=== PATIENT | male | born 1985 | race Hispanic/Latino ===

== ENCOUNTER 2020-06-23 13:02 | Inpatient (IN) | payer SELFPAY ==
--- OUTSIDE RECORDS SUMMARY | 2020-06-23 13:05 | XMS REPORT | Continuity of Care Document ---
:1985 Author Organization [facility] t Address [address] [place] [address] Care Team Providers Name Role Phone Flor Attending Clinician Problems Condition Condition Condition Status Onset Resolution Last Treating Co mments Source Name Details Category Date Date Treatment Clinician Date SORE Diagnosis Active 2018-07-20 Mem oria THROAT 11-27 16:43:00 l SORE 00:00: Mario THROAT 00 Active 11/27/2017 [facility] Tobacco Problem 2018-06-17 Carlos zeyad use 14:29:03 l Tobacco Mario use 06/17/2018 [facility] History of Past Illness Condition Condition Condition Status Onset Resolution Last Treating Co mments Source Name Details Category Date Date Treatment Clinician Date Acute Problem 2018-06-17 2018-06-17 M emoria pharyngiti 11-28 14:29:03 14:29:03 l s, Acute 05:00: Mario unspecifie pharyngiti 00 d s, unspecifie d 11/28/2017 06/17/2018 [facility] Allergies, Adverse Reactions, Alerts This patient has no known allergies or adverse reactions. Social History Social Habit Start Date Stop Date Quantity Comments Source Social History 2017-11-28 2017-11-28 [facility] ermann 08:19:00 08:19:00 Medications Ordered Filled Start Stop Current Ordering Indication Dosage Frequency Signature Comments Components Source Medication Medication Date Date Medication? Clinician (SIG) Name Name Motrin No Notes: Memoria 8-20 (Same as: l 08:02: Motrin) Mario 00 "Do Not Crush" Take with food. phenol 14 Yes 5 spray, Carlos zeyad MG/ML 8-20 PO, Q2H, l Mucosal 07:57: PRN as [facility] 00 needed for sore throat, leave in place x 15 sec,then spit, # 180 mL, 0 Refill(s) amoxicillin No 500 mg = 1 Memoria 500 mg oral 8-20 tab, PO, l tablet 07:55: BID, X 10 Eduardo n 00 day, # 20 tab, 0 Refill(s) Ibuprofen No 800 mg = 1 Me moria 800 MG Oral 8-20 tab, PO, l Tablet 07:54: Q8H, PRN Mario [Motrin] 00 Pain, Take with food, X 3 day, # 9 tab, 0 Refill(s) Vital Signs Vital Name Observation Time Observation Value Comments Source Temperature Oral (F) 2017-11-28 08:17:00 98.5 F [facility] Respitory Rate 2017-11-28 08:17:00 [facility] Heart Rate 2017-11-28 08:17:00 [facility] Systolic (mm Hg) 2017-11-28 08:17:00 Carlos [facility] Diastolic (mm Hg) 2017-11-28 08:17:00 Mem [facility] Heart Rate 2017-11-28 06:56:00 [facility] Systolic (mm Hg) 2017-11-28 06:56:00 Carlos rial Mario Diastolic (mm Hg) 2017-11-28 06:56:00 Mem orial Mario Respitory Rate 2017-11-28 06:56:00 [facility] Weight 2017-11-28 06:56:00 [facility] Temperature Oral (F) 2017-11-28 06:56:00 98.3 F [facility] Procedures This patient has no known procedures. Encounters Start End Encounter Admission Attending Care Care Encounter Source Date/Time Date/Time Type Type Clinicians Facility Department ID 2017-11-28 2017-11-28 Outpatient Flor, [facility] MH[facility] [id number] 01:52:00 03:19:00 [facility] 00 2017-11-28 2017-11-28 Emergency E [facility]BL [facility]BL [id number] [facility]BL 01:52:00 01:52:00 Results Test Description Test Time Test Comments Results Result Comments Source RPR Qualitative 2018-10-26 10:13:39 Test Item Value Reference Range Interpretation Comme nts RPR Qual (test code = RPR Qual) Non-Reactive Non-Reactive Reactive Control (test code = Reactive Control) Reactive Weak Reactive Control (test code = Weak Reactive Weak Reactive Control) Non-Reactive Control (test code = Non-Reactive Non-Reactive Control) Lot # (test code = Lot #) [id number] Expiration Dt (test code = Expiration Dt) 02-09-20 N Lipid [id number] 04:18:41 Test Item Value Reference Range Interpretation Comments Cholesterol Total 188 mg/dL 0-200 RISK OF HE ART (test code = DISEASEPublishe d by Cholesterol Total) [place] [employer] Lisa lyte Optimal Borderl ine Increased RiskC HOL <200 200-239 >2 40TRIG <150 150-199 >2 00HDL Male >60 <40H DL Female >60 <5 0LDL <100 130-159 >1 60LDL Near optimal is 100-129 Triglycerides (test 184 mg/dL 9-200 code = Triglycerides) HDL (test code = HDL) 30 mg/dL 40-60 L LDL (test code = LDL) 122 mg/dL 0-130 The eq uation being used in this calcula tion is LDL = (Chol - H DL) - (Trig / 5) VLDL (test code = 37 mg/dL 5-40 The equati on being used VLDL) in this calcula tion is VLDL = Trig / 5 Chol/HDL (test code = 6.3 ratio 0.0-5.0 H Chol/HDL) LDL/HDL Ratio (test 4 N The equa tion being used code = LDL/HDL Ratio) in thi s calculation is LDL/HDL Ratio=L DL Calc/HDL Chol Thyroid Stimulating [id number] 04:18:41 Test Item Value Reference Range Interpretation Comments TSH (test code = TSH) 1.310 mIU/mL 0.270-4.200 Alcohol [id number] 23:21:50 Test Item Value Reference Range Interpretation Comments Ethanol Level (test <0.00 g/dL 0.00-0.01 Intoxica tu 0.080 g/dL code = Ethanol or more Level) Ethanol Inst (test <0 N code = Ethanol Inst) Comprehensive Metabolic [id number] 23:21:49 Test Item Value Reference Range Interpretation Comments Sodium Level (test 145.0 mmol/L 135.0-145.0 code = Sodium Level) Potassium Level 4.5 mmol/L 3.5-5.1 (test code = Potassium Level) Chloride Level (test 105 mmol/L 98-105 code = Chloride Level) CO2 (test code = 29 mmol/L 22-29 CO2) Anion Gap (test code 11 mmol/L 7-16 = Anion Gap) BUN (test code = 9.90 mg/dL 6.00-20.00 BUN) Creatinine Level 0.90 mg/dL 0.70-1.20 (test code = Creatinine Level) BUN/Creat Ratio 11 N (test code = BUN/Creat Ratio) Glucose Level (test 123 mg/dL 70-115 H code = Glucose Level) Calcium Level (test 9.7 mg/dL 8.3-10.5 code = Calcium Level) Alk Phos (test code 97 U/L 40-129 = Alk Phos) Bilirubin Total 0.4 mg/dL 0.1-0.9 (test code = Bilirubin Total) Albumin Level (test 4.7 g/dL 3.5-5.2 code = Albumin Level) Protein Total (test 6.9 g/dL 6.4-8.3 code = Protein Total) ALT (test code = 48 U/L 1-41 H ALT) AST (test code = 24 U/L 1-40 AST) Globulin (test code 2.2 g/dL 2.9-3.1 L = Globulin) A/G Ratio (test code 2.1 ratio N = A/G Ratio) eGFR AA (test code = >60 N eGFR (e stimated eGFR AA) mL/min/1.73 m2 Glomerular Filtration Rate ) is an estimated va lue, calculated from the patient's serum creatinine usin g the MDRD equation. It is NOT the patient 's actual GFR. The eGFR provides a more clinically usef ul measure of kidn ey disease than se rum creatinine alone.This calculation zan es sex and race in to account, if the information is provided. If th e race is not provided, and t he patient is -Dee n, multiply by 1.2 12. If sex is not provided, and t he patient is fema le, multiply by 0.7 42. Results for pat ients <18 years of ag e have not been validated by th e MDRD study and should be interpreted wit h caution. eGFR R esult Interpretation: eGFR > or = 60 is in the Normal RangeeGF R < 60 may mean kid kavon diseaseeGFR < 1 5 may mean kidney failure Rang es recommended by the National Kidney Foundation, http://nkdep.ni h.gov Comprehensive Metabolic [id number] 23:21:49 Test Item Value Reference Range Interpretation Comments Sodium Level (test 145.0 mmol/L 135.0-145.0 code = Sodium Level) Potassium Level 4.5 mmol/L 3.5-5.1 (test code = Potassium Level) Chloride Level (test 105 mmol/L 98-105 code = Chloride Level) CO2 (test code = 29 mmol/L 22-29 CO2) Anion Gap (test code 11 mmol/L 7-16 = Anion Gap) BUN (test code = 9.90 mg/dL 6.00-20.00 BUN) Creatinine Level 0.90 mg/dL 0.70-1.20 (test code = Creatinine Level) BUN/Creat Ratio 11 N (test code = BUN/Creat Ratio) Glucose Level (test 123 mg/dL 70-115 H code = Glucose Level) Calcium Level (test 9.7 mg/dL 8.3-10.5 code = Calcium Level) Alk Phos (test code 97 U/L 40-129 = Alk Phos) Bilirubin Total 0.4 mg/dL 0.1-0.9 (test code = Bilirubin Total) Albumin Level (test 4.7 g/dL 3.5-5.2 code = Albumin Level) Protein Total (test 6.9 g/dL 6.4-8.3 code = Protein Total) ALT (test code = 48 U/L 1-41 H ALT) AST (test code = 24 U/L 1-40 AST) Globulin (test code 2.2 g/dL 2.9-3.1 L = Globulin) A/G Ratio (test code 2.1 ratio N = A/G Ratio) eGFR AA (test code = >60 N eGFR (e stimated eGFR AA) mL/min/1.73 m2 Glomerular Filtration Rate ) is an estimated va lue, calculated from the patient's serum creatinine usin g the MDRD equation. It is NOT the patient 's actual GFR. The eGFR provides a more clinically usef ul measure of kidn ey disease than se rum creatinine alone.This calculation zan es sex and race in to account, if the information is provided. If th e race is not provided, and t he patient is -Dee n, multiply by 1.2 12. If sex is not provided, and t he patient is fema le, multiply by 0.7 42. Results for pat ients <18 years of ag e have not been validated by th e MDRD study and should be interpreted wit h caution. eGFR R esult Interpretation: eGFR > or = 60 is in the Normal RangeeGF R < 60 may mean kid kavon diseaseeGFR < 1 5 may mean kidney failure Rang es recommended by the National Kidney Foundation, http://nkdep.ni h.gov Comprehensive Metabolic [id number] 23:21:49 Test Item Value Reference Range Interpretation Comments Sodium Level (test 145.0 mmol/L 135.0-145.0 code = Sodium Level) Potassium Level 4.5 mmol/L 3.5-5.1 (test code = Potassium Level) Chloride Level (test 105 mmol/L 98-105 code = Chloride Level) CO2 (test code = 29 mmol/L 22-29 CO2) Anion Gap (test code 11 mmol/L 7-16 = Anion Gap) BUN (test code = 9.90 mg/dL 6.00-20.00 BUN) Creatinine Level 0.90 mg/dL 0.70-1.20 (test code = Creatinine Level) BUN/Creat Ratio 11 N (test code = BUN/Creat Ratio) Glucose Level (test 123 mg/dL 70-115 H code = Glucose Level) Calcium Level (test 9.7 mg/dL 8.3-10.5 code = Calcium Level) Alk Phos (test code 97 U/L 40-129 = Alk Phos) Bilirubin Total 0.4 mg/dL 0.1-0.9 (test code = Bilirubin Total) Albumin Level (test 4.7 g/dL 3.5-5.2 code = Albumin Level) Protein Total (test 6.9 g/dL 6.4-8.3 code = Protein Total) ALT (test code = 48 U/L 1-41 H ALT) AST (test code = 24 U/L 1-40 AST) Globulin (test code 2.2 g/dL 2.9-3.1 L = Globulin) A/G Ratio (test code 2.1 ratio N = A/G Ratio) eGFR AA (test code = >60 N eGFR (e stimated eGFR AA) mL/min/1.73 m2 Glomerular Filtration Rate ) is an estimated va lue, calculated from the patient's serum creatinine usin g the MDRD equation. It is NOT the patient 's actual GFR. The eGFR provides a more clinically usef ul measure of kidn ey disease than se rum creatinine alone.This calculation zan es sex and race in to account, if the information is provided. If th e race is not provided, and t he patient is -Dee n, multiply by 1.2 12. If sex is not provided, and t he patient is fema le, multiply by 0.7 42. Results for pat ients <18 years of ag e have not been validated by [facility] MDRD study and should be interpreted wit h caution. eGFR R esult Interpretation: eGFR > or = 60 is in the Normal RangeeGF R < 60 may mean kid kavon diseaseeGFR < 1 5 may mean kidney failure Rang es recommended by the National Kidney Foundation, http://nkdep.ni h.gov eGFR Non-AA (test >60.00 N eGFR (catia mated code = eGFR Non-AA) mL/min/1.73 m2 Glomer ular Filtration Rate ) is an estimated va lue, calculated from the patient's serum creatinine usin g the MDRD equation. It is NOT the patient 's actual GFR. The eGFR provides a more clinically usef ul measure of kidn ey disease than se rum creatinine alone.This calculation zan es sex and race in to account, if the information is provided. If th e race is not provided, and t he patient is -Dee n, multiply by 1.2 12. If sex is not provided, and t he patient is fema le, multiply by 0.7 42. Results for pat ients <18 years of ag e have not been validated by [facility] MDRD study and should be interpreted wit h caution. eGFR R esult Interpretation: eGFR > or = 60 is in the Normal RangeeGF R < 60 may mean kid kavon diseaseeGFR < 1 5 may mean kidney failure Rang es recommended by the National Kidney Foundation, http://nkdep.ni h.gov Drugs of Abuse Urine [id number] 23:19:05 Test Item Value Reference Range Interpretation Comments Amphetamine Screen Ur Negative Negative For di agnostic (test code = Amphetamine pur poses only. Screen Ur) Positive result s should always b e assessed in conjunction wit h a patient's medic al history. Barbiturate Screen Ur Negative Negative (test code = Barbiturate Screen Ur) Benzodiazepines Ur (test Negative Negative code = Benzodiazepines Ur) Cocaine Screen Ur (test Negative Negative code = Cocaine Screen Ur) U Methadone (test code = Negative Negative U Methadone) Opiate Screen Ur (test Negative Negative code = Opiate Screen Ur) U PCP Scrn (test code = U Negative Negative PCP Scrn) U Propoxyphene (test code Negative Negative = U Propoxyphene) Cannabinoid Screen Ur Negative Negative (test code = Cannabinoid Screen Ur) Complete Blood Count with [id number] 23:09:01 Test Item Value Reference Range Interpretation Comments WBC (test code = WBC) 10.8 x10 4.4-10.5 H RBC (test code = RBC) 4.77 x10 4.10-5.70 Hgb (test code = Hgb) 14.9 g/dL 13.4-17.4 Hct (test code = Hct) 43.2 % 38.7-52.0 MCV (test code = MCV) 90.60 fL 80.00-100.00 MCHC (test code = 34.50 g/dL 32.00-37.50 MCHC) RDW CV (test code = 11.9 % 11.5-14.5 RDW CV) MCH (test code = MCH) 31.2 pg 27.0-32.5 Platelets (test code = 419.0 x10 140.0-440.0 Platelets) MPV (test code = MPV) 9.9 fL N Slide Review (test Auto Auto Result cr eated by code = Slide Review) GL_SJM_ SLIDE_REV_AUTO nRBC (test code = 0 N nRBC) NRBC Abs (test code = 0.00 x10 N NRBC Abs) IPF (test code = IPF) 0 % N Automated [id number] 23:09:01 Test Item Value Reference Range Interpretation Comments Neutro Auto (test code = Neutro 59.1 % 36.0-70.0 Auto) Lymph Auto (test code = Lymph Auto) 33.5 % 12.0-44.0 Hickory Auto (test code = Hickory Auto) 5.9 % 0.0-11.0 Eos, Auto (test code = Eos, Auto) 0.6 % 0.0-7.0 Basophil Auto (test code = Basophil 0.6 % 0.0-2.0 Auto) Neutro Absolute (test code = Neutro 6.4 x10 1.6-7.4 Absolute) Lymph Absolute (test code = Lymph 3.61 x10 .50-4.60 Absolute) [place]ory Absolute (test code = [place]ickory .64 x10 .00-1.20 Absolute) Eos Absolute (test code = Eos 0.07 x10 0.00-0.74 Absolute) Baso Absolute (test code = Baso 0.06 x10 0.00-0.21 Absolute) IG [id number] 23:09:01 Test Item Value Reference Range Interpretation Comments IG (test code = IG) 0.3 % 0.0-5.0 IG Abs (test code = IG Abs) 0 x10 N [id number] 07:00:00Negative (11/28/17 2:00 AM)[facility]
--- NOTE | 2020-06-23 15:46 | RAD REPORT ---
EXAM DESCRIPTION: CT - Stone Protocol - 06/23/2020 2:37 pm CLINICAL HISTORY: Abdominal pain. COMPARISON: None. TECHNIQUE: Computed axial tomography of the abdomen pelvis was obtained without oral or IV contrast. Lack of IV and oral contrast limits evaluation of solid organs, bowel, and vessels. Coronal reformat tu images were obtained and reviewed. All CT scans are performed using dose optimization technique as appropriate and may include automated exposure control or mA/KV adjustment according to patient size. FINDINGS: A renal calculus is not seen. An ureteral calculus is not noted. A bladder calculus is not present. The liver, spleen, pancreas and adrenals appear grossly normal There is no evidence of diverticulitis. The appendix extends inferiorly from the cecum. The mid and distal portion are dilated with minimal a djacent stranding. Small left inguinal hernia IMPRESSION: Mid and distal appendix are dilated probably indicating appendicitis
[2020-06-23 16:12] LABS: Absolute Lymphocytes (CBC) 3.1 K/uL (0.7-4.9); Basophils % 0.7 % (0-1.3); Hematocrit 43.7 % (39.6-49.0); Lymphocytes % 27.8 % (15.3-44.8); MPV 8.3 fL (7.6-11.3); RBC Red Blood Cell Count 4.81 M/uL (4.33-5.43)
[2020-06-23 16:28] LABS: ALT/SGPT 30 U/L (12-78); AST/SGOT 13 U/L (15-37); Albumin 4.1 g/dL (3.4-5.0); Alkaline Phosphatase 88 U/L (45-117); BUN Blood Urea Nitrogen 9 mg/dL (7-18); Bicarbonate 30 mmol/L (21-32); Bilirubin Direct 0.1 mg/dL (0-0.2); Bilirubin Total 0.5 mg/dL (0.2-1.0); Glucose Level 89 mg/dL (74-106); Lipase 193 U/L (73-393); Potassium 3.9 mmol/L (3.5-5.1); Protein, Total 7.8 g/dL (6.4-8.2); Sodium Level 141 mmol/L (136-145)
[2020-06-23] MEDS ORDERED: PIPER/TAZO/NS 3.375gm 3.375 GM/100 ML BAG ONE (16:31)
[2020-06-23] MEDS ORDERED: NA CHLORIDE 0.9% 1,000 ML ONE (16:31)
[2020-06-23] MEDS ORDERED: MORPHINE 4 MG/ML SYR ONE (16:31)
[2020-06-23] MEDS ORDERED: ONDANSETRON 4 MG/2 ML VIAL ONE (16:31)
--- NOTE | 2020-06-23 16:57 | EDPHYS ---
Physician Documentation [facility] Name: Matthew Beltrán Age: 35 yrs Sex: Male : 1985 Arrival Date: 06/23/2020 Time: 13:06 Bed 2 Private MD: ED Physician Karthik Ordoñez HPI: 06/23 14:41 This 35 yrs old Male presents to ER via Ambulatory with complaints of Possible jmm Kidney Stone. 14:41 The patient complains of pain in the right flank. Onset: The symptoms/episode jmm began/occurred acutely, this morning. Modifying factors: The symptoms are alleviated by nothing. the symptoms are aggravated by nothing. Associated signs and symptoms: Pertinent positives: hematuria. 14:42 This is a 35 year old male with a history of anxiety that presents to the ED with jmm complaints of right flank pain beginning this morning with an episode of hematuria. Denies vomiting. . Historical: - Allergies: 14:18 No Known Allergies; ca1 - Home Meds: 14:18 Celexa Oral [Active]; ca1 - PMHx: 14:18 Anxiety; ca1 - PSHx: 14:18 None; ca1 - Immunization history:: Flu vaccine is not up to date. - Social history:: Smoking status: Patient denies any tobacco usage or history of. ROS: 14:42 Constitutional: Negative for fever, chills, and weight loss, Cardiovascular: Negative jmm for chest pain, palpitations, and edema, Respiratory: Negative for shortness of breath, cough, wheezing, and pleuritic chest pain. 14:42 Abdomen/GI: Positive for abdominal pain. 14:42 Back: Positive for flank pain. 14:42 All other systems are negative. Exam: 14:42 Head/Face: atraumatic. Eyes: EOMI, no conjunctival erythema appreciated ENT: Moist jmm Mucus Membranes Neck: Trachea midline, Supple Chest/axilla: Normal chest wall appearance and motion. Cardiovascular: Regular rate and rhythm. No edema appreciated Respiratory: Normal respirations, no respiratory distress appreciated Abdomen/GI: Non distended, soft Back: Normal ROM Skin: General appearance color normal MS/ Extremity: Moves all extremities, no obvious deformities appreciated, no edema noted to the lower extremities Neuro: Awake and alert, normal gait Psych: Behavior is normal, Mood is normal, Patient is cooperative and pleasant 14:42 Constitutional: The patient appears alert, awake, uncomfortable. 16:15 Abdomen/GI: Inspection: abdomen appears normal, Bowel sounds: normal, Palpation: soft, [facility] mild abdominal tenderness, in the right lower quadrant. Vital Signs: 14:15 BP 120 / 88; Pulse 70; Resp 16 S; Temp 98.1(TE); Pulse Ox 99% on R/A; Weight 74.84 kg ca1 (R); Height 5 ft. 7 in. (170.18 cm) (R); Pain 9/10; 16:57 BP 121 / 77; Pulse 68; Resp 18; Pulse Ox 100% on R/A; ph 18:22 BP 113 / 57; Pulse 72; Resp 18; Pulse Ox 100% on R/A; ph 14:15 Body Mass Index 25.84 (74.84 kg, 170.18 cm) ca1 MDM: 14:19 Patient medically screened. [facility] 16:55 Data reviewed: vital signs, nurses notes. Counseling: I had a detailed discussion with [facility] the patient and/or guardian regarding: the historical points, exam findings, and any diagnostic results supporting the discharge/admit diagnosis, lab results, radiology results, the need for further work-up and treatment in the hospital. ED course: I discussed the patient with Dr. Avila whom accepted the patient for admission. 06/23 15:02 Order name: Urine Dipstick--Ancillary (enter results); Complete Time: 17:10 06/23 15:56 Order name: Basic Metabolic Panel; Complete Time: 16:[address] [facility] 06/23 15:56 Order name: CBC with Diff; Complete Time: 16:[address] [facility] 06/23 15:56 Order name: Hepatic Function; Complete Time: 16:[address] [facility] 06/23 15:56 Order name: Lipase; Complete Time: 16:[address] [facility] 06/23 17:21 Order name: Basic Metabolic Panel [facility] 06/23 17:21 Order name: Basic Metabolic Panel [facility] 06/23 17:21 Order name: CBC with Automated Diff EDPR 06/23 17:21 Order name: CBC with Automated Diff EDPR 06/23 17:21 Order name: Lipase [facility] 06/23 17:21 Order name: Lipase [facility] 06/23 17:21 Order name: Liver (Hepatic) Function [facility] 06/23 17:21 Order name: Liver (Hepatic) Function EDMS 06/23 14:19 Order name: Urine Dipstick-Ancillary (obtain specimen); Complete Time: 15:[address] [facility] 06/23 14:19 Order name: CT Stone Protocol; Complete Time: 15:[address] [facility] 06/23 15:56 Order name: IV Saline Lock; Complete Time: 16:[address] [facility] 06/23 15:56 Order name: Labs collected and sent; Complete Time: 16:[address] [facility] 06/23 16:08 Order name: EKG - Nurse/Tech; Complete Time: 16:[address] [facility] 06/23 17:21 Order name: NPO; Complete Time: 18:23 [facility] 06/23 18:07 Order name: SARS-COV-2 RT PCR; Complete Time: 18:41 EDMS Administered Medications: 16:20 Drug: NS 0.9% 1000 ml Route: IV; Rate: 1 bolus; Site: right antecubital; iw 18:23 Follow up: Response: No adverse reaction; IV Status: Completed infusion; IV Intake: ph 1000ml 16:23 Drug: Zofran (Ondansetron) 4 mg Route: IVP; Site: right antecubital; iw 16:56 Follow up: Response: No adverse reaction ph 16:25 Drug: morphine 4 mg Route: IVP; Site: right antecubital; iw 16:56 Follow up: Response: No adverse reaction; Pain is decreased; RASS: Alert and Calm (0) ph 16:30 Drug: Zosyn 3.375 grams Route: IVPB; Infused Over: 60 mins; Site: right antecubital; iw 17:30 Follow up: Response: No adverse reaction; IV Status: Completed infusion; IV Intake: ph 100ml Disposition: 06/24 09:45 Co-signature as Attending Physician, Karthik Ordoñez MD I agree with the assessment and gerhard plan of care. Disposition: 06/23/20 16:56 Hospitalization ordered by Indio Avila for Observation. Preliminary diagnosis is Acute appendicitis. - Bed requested for Telemetry/MedSurg (observation). - Status is Observation. ea - Condition is Stable. - Problem is new. - Symptoms are unchanged. Signatures: Dispatcher [employer] EDPR Dorene Morley Corey, MD MD cha Mickail, Joel, PA PA jmm Williams, Irene, RN Dee Messer, RN Yaneth Jennings ea, RN RN [facility] Laurence Swenson RN ph Corrections: (The following items were deleted from the chart) 06/23 17:11 16:07 CORONAVIRUS+ ordered. EDPR EDMS 18:42 16:56 Hospitalization Ordered by Indio Avila MD for Observation. Preliminary diagnosis bd is Acute appendicitis. Bed requested for Telemetry/MedSurg (observation). Status is Observation. Condition is Stable. Problem is new. Symptoms are unchanged. [facility] 19:27 18:42 06/23/2020 16:56 Hospitalization Ordered by Indio Avila MD for Observation. Preliminary diagnosis is Acute appendicitis. Bed requested for Telemetry/MedSurg (observation). Status is Observation. Condition is Stable. Problem is new. Symptoms are unchanged. bd
--- NOTE | 2020-06-23 16:57 | ER ---
Nurse's Notes [facility] Name: Matthew Beltrán Age: 35 yrs Sex: Male : 1985 Arrival Date: 06/23/2020 Time: 13:06 Bed 2 Private MD: Diagnosis: Acute appendicitis Presentation: 06/23 14:15 Chief complaint: Patient states: pain with urination, RLQ and R inguinal pain since ca1 this morning. Blood in the urine. HX of kidney stones. Denies fever. Coronavirus screen: Client denies travel out of the [place] in the last 14 days. At this time, the client does not indicate any symptoms associated with coronavirus-19. Ebola Screen: Patient negative for fever greater than or equal to 101.5 degrees Fahrenheit, and additional compatible Ebola Virus Disease symptoms Patient denies exposure to infectious person. Patient denies travel to an Ebola-affected area in the 21 days before illness onset. No symptoms or risks identified at this time. Initial Sepsis Screen: Does the patient meet any 2 criteria? No. Patient's initial sepsis screen is negative. Does the patient have a suspected source of infection? No. Patient's initial sepsis screen is negative. Risk Assessment: Do you want to hurt yourself or someone else? Patient reports no desire to harm self or others. Onset of symptoms was June 23, 2020. 14:15 Method Of Arrival: Ambulatory ca1 14:15 Acuity: PERCY 3 ca1 Historical: - Allergies: 14:18 No Known Allergies; ca1 - Home Meds: 14:18 Celexa Oral [Active]; ca1 - PMHx: 14:18 Anxiety; ca1 - PSHx: 14:18 None; ca1 - Immunization history:: Flu vaccine is not up to date. - Social history:: Smoking status: Patient denies any tobacco usage or history of. Screenin:16 Abuse screen: Denies threats or abuse. Denies injuries from another. Nutritional ph screening: No deficits noted. Tuberculosis screening: No symptoms or risk factors identified. Fall Risk None identified. Assessment: 16:49 General: Appears in no apparent distress. comfortable, well groomed, Behavior is calm, ph cooperative, appropriate for age. Pain: Complains of pain in right lower quadrant. Neuro: Level of Consciousness is awake, alert, obeys commands, Oriented to person, place, time, situation. Cardiovascular: Capillary refill < 3 seconds in bilateral fingers Patient's skin is warm and dry. Respiratory: Airway is patent Respiratory effort is even, unlabored, Respiratory pattern is regular, symmetrical. GI: Abdomen is non-distended, Reports lower abdominal pain. : Reports pain in right flank(s), urinary frequency, blood in urine. Derm: Skin is intact, is healthy with good turgor, Skin is pink, warm \T\ dry. Musculoskeletal: Circulation, motion, and sensation intact. Range of motion: intact in all extremities. 18:22 Reassessment: Patient appears in no apparent distress at this time. Patient and/or ph family updated on plan of care and expected duration. Pain level reassessed. Patient is alert, oriented x 3, equal unlabored respirations, skin warm/dry/pink. 19:26 Reassessment: Patient and/or family updated on plan of care and expected duration. Pain ea level reassessed. Patient is alert, oriented x 3, equal unlabored respirations, skin warm/dry/pink. Pt taken to OR per OR nurse. Report given. Vital Signs: 14:15 BP 120 / 88; Pulse 70; Resp 16 S; Temp 98.1(TE); Pulse Ox 99% on R/A; Weight 74.84 kg ca1 (R); Height 5 ft. 7 in. (170.18 cm) (R); Pain 9/10; 16:57 BP 121 / 77; Pulse 68; Resp 18; Pulse Ox 100% on R/A; ph 18:22 BP 113 / 57; Pulse 72; Resp 18; Pulse Ox 100% on R/A; ph 14:15 Body Mass Index 25.84 (74.84 kg, 170.18 cm) ca1 ED Course: 13:06 Patient arrived in ED. mr 14:08 Jose Hay PA is PHCP. jmm 14:18 Triage completed. ca1 14:18 Karthik Ordoñez MD is Attending Physician. jmm 14:18 Arm band placed on right wrist. ca1 14:36 CT Stone Protocol In Process Unspecified. EDMS 16:05 Initial lab(s) drawn, by me, sent to lab. Inserted saline lock: 20 gauge in right iw antecubital area, using aseptic technique. Blood collected. 16:06 Laurence Swenson, RN is Primary Nurse. ph 16:17 Patient has correct armband on for positive identification. Bed in low position. Call ph light in reach. Side rails up X 1. Pulse ox on. NIBP on. Door closed. Noise minimized. 16:56 Indio Avila MD is Hospitalizing Provider. m 18:23 No provider procedures requiring assistance completed. Patient admitted, IV remains in ph place. Administered Medications: 16:20 Drug: NS 0.9% 1000 ml Route: IV; Rate: 1 bolus; Site: right antecubital; iw 18:23 Follow up: Response: No adverse reaction; IV Status: Completed infusion; IV Intake: ph 1000ml 16:23 Drug: Zofran (Ondansetron) 4 mg Route: IVP; Site: right antecubital; iw 16:56 Follow up: Response: No adverse reaction ph 16:25 Drug: morphine 4 mg Route: IVP; Site: right antecubital; iw 16:56 Follow up: Response: No adverse reaction; Pain is decreased; RASS: Alert and Calm (0) ph 16:30 Drug: Zosyn 3.375 grams Route: IVPB; Infused Over: 60 mins; Site: right antecubital; iw 17:30 Follow up: Response: No adverse reaction; IV Status: Completed infusion; IV Intake: ph 100ml Intake: 17:30 IV: 100ml; Total: 100ml. ph 18:23 IV: 1000ml; Total: 1100ml. ph Outcome: 16:56 Decision to Hospitalize by Provider. [facility] 19:27 Admitted to OR accompanied by nurse, via wheelchair, Report called to OR nurse ea 19:27 Condition: stable 19:27 Instructed on the need for admit. 19:27 Patient left the ED. ea Signatures: Dispatcher [employer] EDMS Jose Hay PA PA jmm JordanSabina Francisca Snider RN RN iw Hall, Patricia, RN RN ph Antunez, Elena, RN RN ea Acob, Cheryl, RN RN ca1 Corrections: (The following items were deleted from the chart) 18:23 16:49 : Reports pain in right flank(s), ph ph
[2020-06-23 17:05] LABS: Urine Blood 2+ (NEG); Urine Glucose NEGATIVE (NEG); Urine Protein NEGATIVE (NEG); Urine Specific Gravity >1.030 (1.005-1.030); Urine pH 5.5 (5.0-7.0)
[2020-06-23] MEDS ORDERED: MORPHINE 4 MG/ML SYR IV PRN (17:20)
[2020-06-23] MEDS ORDERED: ACETAMINOPHEN 500 MG TAB PO PRN (17:20)
[2020-06-23] MEDS ORDERED: ONDANSETRON 4 MG/2 ML VIAL IV PRN (17:20)
[2020-06-23] MEDS ORDERED: BUPIVACAINE 0.5% PF 10 ML VIAL ONE (19:53)
[2020-06-23] MEDS ORDERED: Ringers Lactate 1,000 ML IV ONE (19:54)
[2020-06-23 20:29] VITALS: BMI 25.8
[2020-06-23] MEDS: D5 0.45 NS 1,000 ML IV SCH (20:44)
[2020-06-24 00:42] VITALS: O2SAT 100
[2020-06-24] MEDS ORDERED: PIPER/TAZO/NS 3.375gm 3.375 GM/100 ML BAG IVPB SCH (01:00)
[2020-06-24] MEDS: D5 0.45 NS 1,000 ML IV SCH ×3 (01:50→14:17)
--- NOTE | 2020-06-24 02:25 | HP ---
Date of Admission: 06/23/2020 Reason: Abdominal pain. History Of Present Illness: The patient is a 35-year-old gentleman who came to the emergency room be cause he had a right lower groin pain and wrap-around right flank pain. He thought he was passing a kidney stone, which he has done in the past. He had some blood in his urine and he had some dysuria as well. He had a workup done, and then there was some question of acute appendicitis. There was no stone seen. He denies any nausea, vomiting, or anorexia. No diarrhea or constipation. No blood in the stool. No sore throat, runny nose, cough, headaches, or dizziness. No chest pain. No fever or chills. Review of Systems: Otherwise unremarkable. Medical History: Anxiety. Past Surgical History: Negative. Allergies: NO ALLERGIES. Social History: Patient does not smoke. Drinks occasionally. Family History: Noncontributory. Physical Examination: Vital Signs: Stable. He is currently afebrile. General: He is awake, alert, and oriented x3. Head and Neck: Cranial nerves 2 through 12 are grossly within normal limits. No neck masses. No JV D. Throat clear. Neck: Supple. Chest: Clear. Heart: S1, S2. Abdomen: Soft, nondistended, nontender. Positive bowel sounds. No Rovsing sign. No pain on the il iopsoas taps. No pain on heel tap and no pain when patient is jumping up and down. Extremities: Adequately perfused. Nontender. Neuro: Nonfocal. Diagnostic Data: Shows white count of 11.2. There is no left shift. Chemistry is essentially withi n normal limits. Urinalysis shows a high specific gravity, 2+ blood, trace leukocyte esterase. CT o f the abdomen and pelvis reviewed with the radiologist. It shows mid and distal portion are dilated with minimal adjacent stranding. The pain extends inferiorly from the cecum. Small left inguinal he rnia. Impression: Mid and distal appendix are dilated, probably indicating appendicitis, although not 100% . Recommendations: At this time, patient clinically does not have appendicitis and therefore we will a dmit the patient, watch him. Keep him n.p.o. after midnight. Repeat the white count and do serial a bdominal exams. If he improves, he will be discharged tomorrow. If he does not, he may need a diagn ostic laparoscopy. Most likely, I think the patient probably passed a kidney stone. /MODL Voice ID: [id number]
[2020-06-24 04:36] LABS: Absolute Lymphocytes (CBC) 4.3 K/uL (0.7-4.9); Basophils % 0.7 % (0-1.3); Hematocrit 39.1 % (39.6-49.0); Lymphocytes % 48.3 % (15.3-44.8); MPV 8.5 fL (7.6-11.3); RBC Red Blood Cell Count 4.27 M/uL (4.33-5.43)
[2020-06-24 04:52] LABS: ALT/SGPT 23 U/L (12-78); AST/SGOT 13 U/L (15-37); Albumin 3.2 g/dL (3.4-5.0); Alkaline Phosphatase 61 U/L (45-117); BUN Blood Urea Nitrogen 9 mg/dL (7-18); Bicarbonate 29 mmol/L (21-32); Bilirubin Direct 0.2 mg/dL (0-0.2); Bilirubin Total 0.7 mg/dL (0.2-1.0); Glucose Level 119 mg/dL (74-106); Lipase 168 U/L (73-393); Potassium 4.2 mmol/L (3.5-5.1); Protein, Total 6.1 g/dL (6.4-8.2); Sodium Level 144 mmol/L (136-145)
[2020-06-24] MEDS ORDERED: INFLUENZA VACCINE (for 3y+) 0.5 ML DOSE IMVAC ONE (09:00)
[2020-06-24] MEDS: PHENAZOPYRIDINE 100MG TAB PO SCH ×2 (11:15→14:15)
[2020-06-24 14:01] VITALS: BP 109/68; TEMP 98.5
--- NOTE | 2020-06-25 04:36 | EKG ---
Test Date: 2020-06-23 Test Time: 15:14:41 Belt Cutter: RAGHU MEASUREMENT RESULTS: Intervals: Rate: 71 DE: 116 QRSD: 84 QT: 364 QTc: 395 [place]: P: 9 DE: 116 QRS: 12 T: 34 INTERPRETIVE STATEMENTS: Normal sinus rhythm Normal ECG Compared to ECG 01/31/2007 18:09:30 No significant changes Electronically Signed On 06-25-20 04:32:42 CDT by Phoenix Nielson
== END 2020-06-24 17:14 | disposition home or self-care (01) | DRG 395 ==
LOC: ER 13:02 → ERHOLD 17:19 → 2ND 20:19 → OBSVTOIN 06-24 08:48
PROVIDERS: ADMIT Surgery; ATTEND Surgery
DX: K38.8 Other specified diseases of appendix (principal); N20.0 Calculus of kidney; R31.9 Hematuria, unspecified; Z79.899 Other long term (current) drug therapy; Z20.822 Contact with and (suspected) exposure to COVID-19
CPT/HCPCS: 36415; 74176; 76377; 80048; 80076; 81003; 83690; 85025; 93005; 96361; 96365; 96375; 99285; G0378; J2405; J2543; J7030; J7120; J7799; U0003

== ENCOUNTER 2022-10-23 10:57 | Emergency (ER) | payer SELFPAY ==
--- OUTSIDE RECORDS SUMMARY | 2022-10-23 11:01 | XMS REPORT | Continuity of Care Document ---
:1985 Author Organization [facility] t Address [address] [place] [address] Care Team Providers Name Role Phone Asked, No Pcp Primary Care Physician Unavailable Asad Kapadia MD Attending Clinician ILYA GERARD Attending Clinician Unavailable Problems This patient has no known problems. Allergies, Adverse Reactions, Alerts This patient has no known allergies or adverse reactions. Social History Social Habit Start Date Stop Date Quantity Comments Source [facility] Tobacco use and 2021-07-04 2021-07-04 Smokeless [facility] exposure 00:00:00 00:00:00 tobacco non-user Hospital Alcohol intake 2021-07-04 2021-07-04 Current drinker [facility] 00:00:00 00:00:00 of alcohol Hospital (finding) History of Social 2021-07-04 2021-07-[address] function 00:00:00 00:00:00 Hospital Alcohol Comment 2021-07-04 2021-07-04 social [facility] 00:00:00 00:00:00 Hospital Sex Assigned At [birth year] [facility] 00:[facility]00 [facility] Smoking Status Start Date Stop Date Source Never smoked tobacco [facility] Medications Ordered Filled Start Stop Current Ordering Indication Dosage Frequency Signature Comments Components Source Medication Medication Date Date Medication? Clinician (SIG) Name Name citalopram No 20mg QD Take 1 Meth kilo (CeleXA) 20 07-04-03 tablet (20 s t MG tablet 00:00: 04:59 mg total) Ho spita 00 :00 by mouth l daily for 7 days. citalopram No 20mg QD Take 1 Meth kilo (CeleXA) 20 07-04-03 tablet (20 s t MG tablet 00:00: 04:59 mg total) Ho spita 00 :00 by mouth l daily for 7 days. citalopram No 20mg QD Take 1 Meth kilo (CeleXA) 20 07-04-03 tablet (20 s t MG tablet 00:00: 04:59 mg total) Ho spita 00 :00 by mouth l daily for 7 days. Vital Signs Vital Name Observation Time Observation Value Comments Source Systolic blood 2021-07-04 18:16:31 125 mm[Hg] Method [facility] pressure Diastolic blood 2021-07-04 18:16:31 78 mm[Hg] [facility] pressure Heart rate 2021-07-04 18:16:31 74 /min [facility] Body temperature 2021-07-04 18:16:31 36.67 [facility] Respiratory rate 2021-07-04 18:16:31 16 /min [facility] Oxygen saturation in 2021-07-04 18:16:31 100 /min [facility] Arterial blood by Pulse oximetry Body height 2021-07-04 18:15:00 170.2 cm [facility] Body weight 2021-07-04 18:15:00 72.576 kg [facility] BMI 2021-07-04 18:15:00 25.06 kg/m2 [facility] Procedures This patient has no known procedures. Encounters Start End Encounter Admission Attending Care Care Encounter Source Date/Time Date/Time Type Type Clinicians Facility Department ID 2022-09-14 2022-09-14 Outpatient [facility] [id number] 230 Raul 08:27:20 08:27:20 606 F Randy 2022-09-03 2022-09-03 Outpatient [facility] [id number] 230 Raul 14:36:24 14:36:24 526 F Randy 2022-05-24 2022-05-24 Outpatient [facility] [id number] 230 Raul 16:10:10 16:10:10 213 F Randy 2021-07-04 2021-07-04 Emergency Rivenes, 1.2.840.1 [id number] Methodi 13:16:00 13:58:[address] Asad Shaff[id number] 3.430.2.7 Hospit a .[id number] l .8 2021-07-04 2021-07-04 Travel 1.2.840.1 [id number] Methodi 00:00:00 00:00:[address] 3.430.2.7 0.2.7.3.698 Ho spita .[id number] 084.8 l .8 2021-03-10 2021-03-10 Emergency [facility] [address] [facility] 11:01:00 12:09:00 ILYA 2017-11-28 2017-11-28 Emergency E BL BL [address]500 BL 01:52:00 01:52:00 Results Test Description Test Time Test Comments Results Result Comments Source COMPREHENSIVE METABOLIC PANEL 2022-09-15 09:29:54 Test Item Value Reference Range Interpretation Comme nts GLUCOSE (test code = 2217) 125 MG/DL 70-99 H BUN (test code = 2208) 18 MG/DL 6-20 CREATININE (test code = 0.78 MG/DL 0.80-1.40 L 2213) eGFR (2020 CKD-EPI) (test 119 ML/MIN/1.73 >60 code = 40360) CALC BUN/CREAT (test code = 23 RATIO 6-28 5) SODIUM (test code = 2231) 142 MEQ/L 133-146 POTASSIUM (test code = 2228) 5.8 MEQ/L 3.5-5.4 H Analytic results reviewed and verified. Stef edge received with r ed cells in contact with [facility]. Certain results may be affected. Clinical correl ation is advised to dete rmine need for recollectio n. CHLORIDE (test code = 2215) 104 MEQ/L 95-107 CARBON DIOXIDE (test code = 24 MEQ/L 2205) CALCIUM (test code = 2208) 9.5 MG/DL 8.5-10.5 PROTEIN, TOTAL (test code = 7.0 G/DL 6.1-8.3 2228) ALBUMIN (test code = 2201) 4.7 G/DL 3.5-5.2 CALC GLOBULIN (test code = 2.3 G/DL 1.9-3.7 2239) CALC A/G RATIO (test code = 2.0 RATIO 1.0-2.6 2233) BILIRUBIN, TOTAL (test code 0.2 MG/DL See_Comment [Automated message] The = 2206) system which ge nerated this result transmit tu reference range : <=1.2. The reference range was not used to interpr et this result as danie l/abnormal. ALKALINE PHOSPHATASE (test 99 U/L 40-112 code = 2204) AST (test code = 2218) 19 U/L 9-50 ALT (test code = 221) 27 U/L 5-50 LIPID [id number] 09:29:54 Test Item Value Reference Range Interpretation Comments CHOLESTEROL (test 125 MG/DL <200 code = 2210) TRIGLYCERIDES (test 99 MG/DL <150 code = 2232) HDL CHOLESTEROL (test 37 MG/DL >39 L code = 2220) CALC LDL CHOL (test 70 MG/DL <100 NOTE: C ALCULATED LDL code = 2237) IS BASED ON KIMBERLEE-SWAIN METHOD WHICHINCLUDES ADJUSTABLE TRIGLYCERIDE:VL DL CHOLESTEROL RAT IO.THIS FACTOR VARIES B Y MEASURED TRIGLY CERIDE AND NON-HDLCHOL ESTEROL CONCENTRATIONS WITH INCREASED CALCU LATED LDL SEENIN HIGH ER TRIGLYCERIDE OR LOWER NON-HDL SPECIME NS. FOR MOREINFORMATION , SEE CLIENT ANNOUNCE MENT AT [email or web address] [email or web address] LDL/HDL 1.89 RATIO <3.55 UNLESS O THERWISE (test code = 2238) INDICATED , ALL TESTING PERFORMED AT [facility], [address] [place] [address] MARIPOSA FRENCH DIRECTOR: Bina QUARLES [place] NUMBER [id number] CAP ACCREDITATION N O. [id number] RPR [id number] 10:13:39 Test Item Value Reference Range Interpretation Comments RPR Qual (test code = RPR Qual) Non-Reactive Non-Reactive Reactive Control (test code = Reactive Reactive Control) Weak Reactive Control (test Weak Reactive code = Weak Reactive Control) Non-Reactive Control (test code Non-Reactive = Non-Reactive Control) Lot # (test code = Lot #) [id number] Expiration Dt (test code = 02-09-20 N Expiration Dt) Lipid [id number] 04:18:41 Test Item Value Reference Range Interpretation Comments Cholesterol Total 188 mg/dL 0-200 RISK OF HE ART (test code = DISEASEPublishe d by Cholesterol Total) [place] [employer] Lisa lyte Optimal Borderl ine Increased RiskC HOL <200 200-239 >240TRI G <150 150-199 >200HDL Male >60 <40HDL Fema le >60 <50LDL <100 130 -159 >160LDL Near op timal is 100-129 Triglycerides (test 184 mg/dL 9-200 [...] LDL/HDL Ratio=L DL Calc/HDL Chol Thyroid Stimulating [id number] 04:18:41 Test Item Value Reference Range Interpretation Comments TSH (test code = TSH) 1.310 mIU/mL 0.270-4.200 Alcohol [id number] 23:21:50 Test Item Value Reference Range Interpretation Comments Ethanol Level (test <0.00 g/dL 0.00-0.01 Intoxica tu 0.080 g/dL code = Ethanol or more Level) Ethanol Inst (test <0 N code = Ethanol Inst) Comprehensive Metabolic [id number] 23:21:49 Test Item Value Reference Range Interpretation [...] ag e have not been validated by e MDRD study and should be interpreted wit h caution. eGFR R esult Interpretation: eGFR > or = 60 is in the Normal RangeeGF R < 60 may mean kid kavon diseaseeGFR < 1 5 may mean kidney failure Rang es recommended by the National Kidney Foundation, http://nkdep.ni h.gov Comprehensive Metabolic [id number] 23:21:49 Test Item Value Reference Range Interpretation [...] National Kidney Foundation, http://nkdep.ni h.gov Comprehensive Metabolic [id number] 23:21:49 Test Item Value Reference Range Interpretation [...] ag e have not been validated by [facility] MDRD study and should be interpreted wit [...] ag e have not been validated by [facility] MDRD study and should be interpreted wit h caution. eGFR R esult Interpretation: eGFR > or = 60 is in the Normal RangeeGF R < 60 may mean kid kavon diseaseeGFR < 1 5 may mean kidney failure Rang es recommended by the National Kidney Foundation, http://nkdep.ni h.gov Drugs of Abuse Urine [id number] 23:19:05 Test Item Value Reference Range Interpretation [...] Cannabinoid Screen Ur) Complete Blood Count with [id number] 23:09:01 Test Item Value Reference Range Interpretation [...] code = IPF) 0 % N Automated [id number] 23:09:01 Test Item Value Reference Range Interpretation Comments Neutro Auto (test code = Neutro 59.1 % 36.0-70.0 Auto) Lymph Auto (test code = Lymph Auto) 33.5 % 12.0-44.0 [place] Auto (test code = [place] Auto) 5.9 % 0.0-11.0 Eos, Auto (test code = Eos, Auto) 0.6 % 0.0-7.0 Basophil Auto (test code = Basophil 0.6 % 0.0-2.0 Auto) Neutro Absolute (test code = Neutro 6.4 x10 1.6-7.4 Absolute) Lymph Absolute (test code = Lymph 3.61 x10 .50-4.60 Absolute) [place] Absolute (test code = [place] .64 x10 .00-1.20 Absolute) Eos Absolute (test code = Eos 0.07 x10 0.00-0.74 Absolute) Baso Absolute (test code = Baso 0.06 x10 0.00-0.21 Absolute) IG [id number] 23:09:01 Test Item Value Reference Range Interpretation Comments IG (test code = IG) 0.3 % 0.0-5.0 IG Abs (test code = IG Abs) 0 x10 N
--- NOTE | 2022-10-23 11:42 | RAD REPORT ---
EXAM DESCRIPTION: CT - Stone Protocol - 10/23/2022 11:31 am CLINICAL HISTORY: Flank pain. HEMATURIA COMPARISON: No comparisonsStone Protocol dated 06/23/2020 TECHNIQUE: Axial images were obtained without oral or IV contrast. Lack of contrast limits solid org an and vascular assessment. The [id number] spans the entirety of the system partially obscuring uppermost abdomen and lung bases. Coronal reformatted images were obtained and reviewed. All CT scans are performed using dose optimization technique as appropriate and may include automated exposure control or mA/KV adjustment according to patient size. FINDINGS: The lower lung monet are clear. Imaged portions of the liver and spleen show no suspicious findings on non-contrast imaging. The panc reas and adrenal glands are normal. No pathologic lymphadenopathy in the abdomen or pelvis. No urinary tract stones or obstructive uropathy. No bowel obstruction, free air, free fluid or abscess. Normal appendix noted. No significant bony abnormality. IMPRESSION: No urinary tract stones or obstructive uropathy.
[2022-10-23 12:10] LABS: Absolute Lymphocytes (CBC) 2.6 K/uL (0.7-4.9); Hematocrit 45.3 % (39.6-49.0); Lymphocytes % 33.2 % (15.3-44.8); MCV 91.9 fL (80-100); MPV 8.3 fL (7.6-11.3); RBC Red Blood Cell Count 4.93 M/uL (4.33-5.43)
[2022-10-23 12:22] LABS: Specific Gravity 1.029 (1.005-1.030); Urine Bacteria None Seen /HPF (<20); Urine Bilirubin NEGATIVE (Negative); Urine Blood 1+ (Negative); Urine Clarity Clear (Clear); Urine Color Yellow (Yellow); Urine Glucose NEGATIVE (Negative); Urine Mucus Slight /HPF (None Seen); Urine Protein NEGATIVE (Negative); Urine Urobilinogen Normal (Normal)
[2022-10-23 12:27] LABS: Albumin 3.8 g/dL (3.4-5.0); Bilirubin Total 0.5 mg/dL (0.2-1.0); Protein, Total 7.2 g/dL (6.4-8.2)
--- NOTE | 2022-10-23 13:02 | ER ---
Nurse's Notes [facility] Name: Matthew Beltrán Age: 37 yrs Sex: Male : 1985 Arrival Date: 10/23/2022 Time: 10:57 Bed 4 Private MD: Diagnosis: UTI/ Urinary tract infection, site not specified Presentation: 10/23 11:02 Chief complaint: Pain with urination and blood in urine since yesterday. Coronavirus hb screen: At this time, the client does not indicate any symptoms associated with coronavirus-19. Ebola Screen: No symptoms or risks identified at this time. Initial Sepsis Screen: Does the patient meet any 2 criteria? No. Patient's initial sepsis screen is negative. Does the patient have a suspected source of infection? No. Patient's initial sepsis screen is negative. Risk Assessment: Do you want to hurt yourself or someone else? Patient reports no desire to harm self or others. Onset of symptoms was October 22, 2022. 11:02 Method Of Arrival: Ambulatory hb 11:02 Acuity: PERCY 3 hb Historical: - Allergies: 11:04 No Known Allergies; hb - Home Meds: 11:04 atorvastatin oral [Active]; citalopram oral [Active]; hb - PMHx: 11:04 Anxiety; hb - PSHx: 11:04 None; hb - Immunization history:: Adult Immunizations up to date. - Social history:: Smoking status: Patient denies any tobacco usage or history of. Screenin:05 [place] ED Fall Risk Assessment (Adult) History of falling in the last 3 months, ph including since admission No falls in past 3 months (0 pts) Confusion or Disorientation No (0 pts) Intoxicated or Sedated No (0 pts) Impaired Gait No (0 pts) Mobility Assist Device Used No (0 pt) Altered Elimination No (0 pt) Score/Fall Risk Level 0 - 2 = Low Risk Oriented to surroundings, Maintained a safe environment, Hourly rounding (assess needs \T\ fall precautionary measures) done. Abuse screen: Denies threats or abuse. Denies injuries from another. Nutritional screening: No deficits noted. Tuberculosis screening: No symptoms or risk factors identified. Assessment: 12:04 General: Appears in no apparent distress. comfortable, Behavior is calm, cooperative, ph appropriate for age. Pain: Complains of pain in with urination. Neuro: Level of Consciousness is awake, alert, obeys commands, Oriented to person, place, time, situation. Cardiovascular: Capillary refill < 3 seconds in bilateral fingers. Respiratory: No deficits noted. GI: Patient currently denies abdominal pain, nausea, vomiting. : Reports pain with urination. Derm: Skin is intact, is healthy with good turgor, Skin is pink, warm \T\ dry. 13:21 Reassessment: Patient appears in no apparent distress at this time. Patient and/or vg1 family updated on plan of care and expected duration. Pain level reassessed. Patient is alert, oriented x 3, equal unlabored respirations, skin warm/dry/pink. Vital Signs: 11:02 BP 131 / 81; Pulse 81; Resp 16; Temp 98.1(O); Pulse Ox 100% on R/A; Weight 68.04 kg; hb Height 5 ft. 9 in. ; Pain 0/10; 11:02 Body Mass Index 22.15 (68.04 kg, 175.26 cm) hb 11:02 Pain Scale: Adult hb ED Course: 10:58 Patient arrived in ED. ts1 11:02 [facility] Horn [facility]. kb 11:02 Karthik Ordoñez MD is Attending Physician. kb 11:04 Triage completed. hb 11:04 Arm band placed on. hb 11:13 Wendie Piedra, RN is Primary Nurse. vg1 11:33 CT Stone Protocol In Process Unspecified. EDMS 11:52 Laurence Swenson, RN is Primary Nurse. ph 12:04 CBC with Diff Sent. ph 12:04 CMP Sent. ph 12:04 Lipase Sent. ph 12:05 Patient has correct armband on for positive identification. Bed in low position. Call ph light in reach. Side rails up X 1. Pulse ox on. NIBP on. 12:05 No provider procedures requiring assistance completed. Inserted saline lock: 22 gauge ph in right antecubital area, using aseptic technique. 13:21 IV discontinued, intact, bleeding controlled, No redness/swelling at site. Pressure vg1 dressing applied. Administered Medications: No medications were administered Medication: 12:05 VIS not applicable for this client. ph Outcome: 13:01 Discharge ordered by . kb 13:21 Discharged to home ambulatory, with family. vg1 13:21 Condition: good 13:21 Discharge instructions given to patient, Instructed on discharge instructions, follow up and referral plans. medication usage, Demonstrated understanding of instructions, follow-up care, medications, Prescriptions given X 1. 13:22 Patient left the ED. vg1 Signatures: Dispatcher [employer] EDMS Rhonda Horn, SLICK-Awa KRUGER-Laurence Ivan RN RN Raeann Broderick RN RN hb Garcia, Victoria, RN RN vg1 Claudia Winchester PAS PAS ts1 Corrections: (The following items were deleted from the chart) 11:05 11:02 BP 131 / 81; Pulse 81bpm; Resp 16bpm; Pulse Ox 100% RA; Temp 98.1F Oral; hb hb
--- NOTE | 2022-10-23 13:02 | EDPHYS ---
Physician Documentation [facility] Name: Matthew Beltrán Age: 37 yrs Sex: Male : 1985 Arrival Date: 10/23/2022 Time: 10:57 Bed 4 Private MD: ED Physician Karthik Ordoñez HPI: 10/23 14:15 This 37 yrs old Male presents to ER via Ambulatory with complaints of Urinary kb Problem, Possible Kidney Stone. 14:15 The patient presents with urinary symptoms, dysuria. Onset: The symptoms/episode kb began/occurred yesterday. Modifying factors: The symptoms are alleviated by nothing, the symptoms are aggravated by urinating. Associated signs and symptoms: Pertinent positives: dysuria, hematuria. Severity of symptoms: At their worst the symptoms were mild, moderate, in the emergency department the symptoms are unchanged. The patient has not experienced similar symptoms in the past. The patient has not recently seen a physician. Historical: - Allergies: 11:04 No Known Allergies; hb - Home Meds: 11:04 atorvastatin oral [Active]; citalopram oral [Active]; hb - PMHx: 11:04 Anxiety; hb - PSHx: 11:04 None; hb - Immunization history:: Adult Immunizations up to date. - Social history:: Smoking status: Patient denies any tobacco usage or history of. ROS: 14:14 Constitutional: Negative for fever, chills, and weight loss. kb 14:14 : Positive for urinary symptoms, small amounts, hematuria, burning with urination. 14:14 All other systems are negative. Exam: 14:14 Constitutional: This is a well developed, well nourished patient who is awake, alert, kb and in no acute distress. Head/Face: Normocephalic, atraumatic. ENT: Moist Mucous membranes Cardiovascular: Regular rate and rhythm with a normal S1 and S2. No gallops, murmurs, or rubs. No pulse deficits. Respiratory: Respirations even and unlabored. No increased work of breathing. Talking in full sentences Abdomen/GI: Soft, non-tender. No distention Back: No spinal tenderness. No costovertebral tenderness. Full range of motion. Skin: Warm, dry with normal turgor. Normal color. MS/ Extremity: Pulses equal, no cyanosis. Neurovascular intact. Full, normal range of motion. Neuro: Awake and alert, GCS 15, oriented to person, place, time, and situation. Moves all extremities. Normal gait. Vital Signs: 11:02 BP 131 / 81; Pulse 81; Resp 16; Temp 98.1(O); Pulse Ox 100% on R/A; Weight 68.04 kg; hb Height 5 ft. 9 in. ; Pain 0/10; 11:02 Body Mass Index 22.15 (68.04 kg, 175.26 cm) hb 11:02 Pain Scale: Adult hb MDM: 11:02 Patient medically screened. kb 14:13 Differential diagnosis: UTI, kidney stone, pyelonephritis. Data reviewed: vital signs, kb nurses notes. Counseling: I had a detailed discussion with the patient and/or guardian regarding: the historical points, exam findings, and any diagnostic results supporting the discharge/admit diagnosis, lab results, radiology results, the need for outpatient follow up, a urologist, to return to the emergency department if symptoms worsen or persist or if there are any questions or concerns that arise at home. 10/23 11:05 Order name: CBC with Diff; Complete Time: 12:21 kb 10/23 11:05 Order name: CMP; Complete Time: 12:33 kb 10/23 11:05 Order name: Lipase; Complete Time: 12:33 kb 10/23 11:05 Order name: Urinalysis w/ reflexes; Complete Time: 12:24 kb 10/23 12:26 Order name: Urine Culture EDKS 10/23 11:05 Order name: CT Stone Protocol; Complete Time: 12:00 kb 10/23 11:05 Order name: IV Saline Lock; Complete Time: 12:04 kb 10/23 11:05 Order name: Labs collected and sent; Complete Time: 12:04 kb Administered Medications: No medications were administered Disposition Summary: 10/23/22 13:01 Discharge Ordered Location: Home kb Condition: Stable kb Diagnosis - UTI/ Urinary tract infection, site not specified kb Followup: kb - With: Emergency Department - When: As needed - Reason: Worsening of condition Followup: kb - With: Private Physician - When: 2 - 3 days - Reason: Recheck today's complaints, Continuance of care, Re-evaluation by your physician Discharge Instructions: - Discharge Summary Sheet kb - Urinary Tract Infection, Adult, [id number] kb Forms: - Medication Reconciliation Form kb - Thank You Letter kb - Antibiotic Education kb - Prescription Opioid Use kb - Patient Portal Instructions kb - Work release form ph Prescriptions: - Augmentin 875-125 mg Oral Tablet - take 1 tablet by ORAL route every 12 hours for 10 days; 20 tablet; Refills: 0, kb Product Selection Permitted Signatures: Dispatcher [employer] Rhonda Shore, Raeann Dawkins, RN RN
[2022-10-23 13:27] VITALS: BP 131/81; TEMP 98.1; O2SAT 100
== END 2022-10-23 13:22 | disposition home or self-care (01) ==
LOC: ER 10:57
DX: N39.0 Urinary tract infection, site not specified (principal)
CPT/HCPCS: 36415; 74176; 76377; 80053; 81001; 83690; 85025; 87086; 87088; 99284